=== PATIENT | female | born 1970 ===

== ENCOUNTER 2020-09-23 11:22 | Outpatient (CLI) | payer OTHER | END 2020-09-23 12:44 | disposition home or self-care (01) | LOC: OFIC 805 11:22 | PROVIDERS: ATTEND Otolaryngology Otology & Neurotology | DX: J31.0 Chronic rhinitis (principal); R09.81 Nasal congestion; R49.0 Dysphonia; R09.82 Postnasal drip ==

== ENCOUNTER 2020-10-21 11:11 | Outpatient (CLI) | payer OTHER | END 2020-10-21 13:10 | disposition home or self-care (01) | LOC: OFIC 805 11:11 | PROVIDERS: ATTEND Otolaryngology Otology & Neurotology | DX: J31.0 Chronic rhinitis (principal); R09.81 Nasal congestion; R49.0 Dysphonia; R09.82 Postnasal drip ==